=== PATIENT | female | born 1980 | race Caucasian/White ===

== ENCOUNTER 2016-07-25 11:36 | Emergency (ER) | payer BC ==
[2016-07-25 13:14] VITALS: BP 131/62
--- NOTE | 2016-07-25 13:35 | UC ---
Respiratory Complaint HPI - HPI Summary HPI Summary: THREE WEEKS OF PRODUCTIVE COUGH WITH GREEN SPUTUM, SINUS CONGESTION, WHEEZING, NO FEVER, - History of Current Complaint Chief Complaint: UCGeneralIllness Stated Complaint: COUGH Time Seen by Provider: 07/25/16 12:56 Hx Obtained From: Patient Hx Last Menstrual Period: 06/30/16 Onset/Duration: Gradual Onset, Lasting Weeks, Still Present Severity Initially: Moderate Severity Currently: Moderate Character: Cough: Productive Aggravating Factors: Deep Breaths Associated Signs And Symptoms: Positive: Chills, Wheezing, URI, Nasal Congestion , Hoarseness, Sinus Discomfort. Negative: Calf Swelling - Risk Factors Pulmonary Embolism Risk Factors: Negative Cardiac Risk Factors: Negative Pseudomonas Risk Factors: Negative Tuberculosis Risk Factors: Negative - Allergies/Home Medications Allergies/Adverse Reactions: Allergies Allergy/AdvReac Type Severity Reaction Status Date / Time No Known Allergies Allergy Verified 07/25/16 13:13 PMH/Surg Hx/FS Hx/Imm Hx Previously Healthy: Yes Endocrine History Of: Denies: Diabetes, Thyroid Disease Cardiovascular History Of: Denies: Cardiac Disorders, Hypertension, Pacemaker/ICD Respiratory History Of: Denies: COPD, Asthma GI/ History Of: Denies: Gastroesophageal Reflux, Renal Disease Neurological History Of: Denies: CVA, Dementia, Seizures Cancer History Of: Denies: Breast Cancer Other History Of: Negative For: Anticoagulant Therapy - Surgical History Surgery Procedure, Year, and Place: ACL repair R knee - arthroscopy R knee - Family History Known Family History: Negative: Respiratory Disease - Social History Occupation: Unemployed Lives: With Family Alcohol Use: None Substance Use Type: None Smoking Status (MU): Never Smoked Tobacco - Immunization History Most Recent Influenza Vaccination: 2016 Most Recent Tetanus Shot: current Review of Systems Constitutional: Chills, Fatigue Skin: Negative Eyes: Negative ENT: Nasal Discharge Respiratory: Cough Cardiovascular: Negative Gastrointestinal: Negative Genitourinary: Negative Motor: Negative Neurovascular: Negative Musculoskeletal: Negative Neurological: Negative Psychological: Negative All Other Systems Reviewed And Are Negative: Yes Physical Exam Triage Information Reviewed: Yes Appearance: No Pain Distress, Well-Nourished, Ill-Appearing Vital Signs: Initial Vital Signs Temp 98.3 F 07/25/16 12:56 Pulse 63 07/25/16 12:56 Resp 18 07/25/16 12:56 BP 131/62 07/25/16 12:56 Pulse Ox 99 07/25/16 12:56 Vital Signs Reviewed: Yes Eye Exam: Normal Eyes: Positive: Conjunctiva Clear ENT: Positive: Hearing grossly normal, Pharynx normal, Nasal congestion, TM bulging, TM dull Dental Exam: Normal Neck exam: Normal Neck: Positive: Supple, Nontender, No Lymphadenopathy Respiratory: Positive: Chest non-tender, Normal breath sounds, No respiratory distress, No accessory muscle use, Wheezing - SCANT WHEEZING ON EXPRATION Cardiovascular Exam: Normal Cardiovascular: Positive: RRR, No Murmur, Pulses Normal Abdominal Exam: Normal Abdomen Description: Positive: Nontender, No Organomegaly Musculoskeletal Exam: Normal Neurological Exam: Normal Psychological Exam: Normal Skin Exam: Normal UC Diagnostic Evaluation - Laboratory O2 Sat by Pulse Oximetry: 99 Respiratory Course/Dx - Differential Dx/Diagnosis Differential Diagnosis/HQI/PQRI: Asthma, Bronchitis, Sinusitis Provider Diagnoses: SINUSITIS. BRONCHITIS WITH BRONCHOSPASM Discharge - Discharge Plan Condition: Stable Disposition: HOME Prescriptions: Albuterol HFA INHALER* [Ventolin HFA Inhaler*] 1 - 2 puff INH Q4H PRN #1 mdi PRN Reason: Wheezing Azithromycin TAB* [Zithromax TAB (Z-JESSICA) 250 mg #6 tabs] 250 mg PO DAILY #6 tab Benzonatate CAP* [Tessalon 100 MG CAP*] 100 mg PO TID PRN #15 cap PRN Reason: Cough Patient Education Materials: Sinusitis (ED), Acute Bronchitis (ED), Bronchospasm (ED) Referrals: Hilary Tarango MD [Primary Care Provider] -
== END 2016-07-25 13:44 | disposition home or self-care (01) ==
LOC: UCEAST 11:36
DX: J32.9 Chronic sinusitis, unspecified (principal); J40 Bronchitis, not specified as acute or chronic; J98.01 Acute bronchospasm
CPT/HCPCS: 99212; G0463

== ENCOUNTER 2018-11-07 17:57 | Emergency (ER) | payer BC ==
[2018-11-07 18:34] VITALS: BP 122/99
[2018-11-07] MEDS ORDERED: Tetan/Diph/Pertus SYR(Tdap)* 0.5 ML SYR(BOOSTRIX) use SYR IM ONE (19:51)
--- NOTE | 2018-11-07 20:34 | UC ---
UC General HPI - HPI Summary HPI Summary: 38-year-old female comes in with a chief complaint of puncture wound to the right hand by a nail today. She also was exposed to somebody with strep throat would like to get a strep test done. Her last tetanus has been a long time ago and she would like a tetanus shot if appropriate. No fevers no chills. The injury was to the thenar eminence of the right hand. No loss of range of motion no numbness is no radiation of pain no drainage no redness. - History of Current Complaint Chief Complaint: UCGeneralIllness Stated Complaint: THROAT PAIN Time Seen by Provider: 11/07/18 20:07 Hx Last Menstrual Period: [id number] Pain Intensity: 3 - Allergy/Home Medications Allergies/Adverse Reactions: Allergies Allergy/AdvReac Type Severity Reaction Status Date / Time No Known Allergies Allergy Verified 11/07/18 18:35 Home Medications: Home Medications Escitalopram * [Lexapro *] 20 mg PO DAILY 11/07/18 [History Confirmed 11/07/18] PMH/Surg Hx/FS Hx/Imm Hx Previously Healthy: Yes Other History Of: Negative For: Anticoagulant Therapy - Surgical History Surgical History: Yes Surgery Procedure, Year, and Place: ACL repair R knee - arthroscopy R knee - Family History Known Family History: Negative: Respiratory Disease - Social History Alcohol Use: Weekly Substance Use Type: None Smoking Status (MU): Never Smoked Tobacco - Immunization History Most Recent Influenza Vaccination: 2015 Most Recent Tetanus Shot: 2009 Review of Systems All Other Systems Reviewed And Are Negative: Yes Constitutional: Positive: Negative Skin: Positive: Other - SEE HPI Eyes: Positive: Negative ENT: Positive: Negative Respiratory: Positive: Negative Cardiovascular: Positive: Negative Gastrointestinal: Positive: Negative Motor: Positive: Negative Neurovascular: Positive: Negative Musculoskeletal: Positive: Negative Neurological: Positive: Negative Psychological: Positive: Negative Is Patient Immunocompromised?: No Physical Exam Triage Information Reviewed: Yes Appearance: Well-Appearing, No Pain Distress, Well-Nourished Vital Signs: Initial Vital Signs Temp 98.2 F 11/07/18 18:30 Pulse 79 11/07/18 18:30 Resp 16 11/07/18 18:30 BP 122/99 11/07/18 18:30 Pulse Ox 99 11/07/18 18:30 Vital Signs Reviewed: Yes Eye Exam: Normal Eyes: Positive: Conjunctiva Clear ENT: Positive: Pharynx normal. Negative: Nasal drainage Neck: Positive: Supple Respiratory: Positive: No respiratory distress Musculoskeletal: Positive: Strength Intact, ROM Intact Neurological Exam: Normal Neurological: Positive: Alert, Muscle Tone Normal Psychological Exam: Normal Psychological: Positive: Age Appropriate Behavior Skin: Positive: Other - On the palmar thenar eminence of the right hand there is a 1 cm linear area of erythema. Appears the nail went in at very low angle. There is no erythema other than the linear area. Nontender to palpation no discharge. Thumb has full range of motion full-strength wrist also has full range of motion full-strength and is nontender to palpation. Course/Dx - Course Course Of Treatment: At this time the puncture wound does not appear infected. Patient received T tap here in clinic. Gave her prescription for Keflex to start if is any signs of infection. Also if there was any infection she needs to get reevaluated right away. - Diagnoses Provider Diagnosis: Puncture wound of hand, right Discharge - Sign-Out/Discharge Documenting (check all that apply): Patient Departure All imaging exams completed and their final reports reviewed: No Studies - Discharge Plan Condition: Stable Disposition: HOME Prescriptions: Cephalexin CAP* [Keflex CAP*] 500 mg PO TID #30 cap Patient Education Materials: Puncture Wound (ED) Referrals: Hilary Tarango MD [Primary Care Provider] - Additional Instructions: FOLLOW UP WITH YOUR DOCTOR IF NOT COMPLETELY IMPROVED. GET RECHECKED SOONER IF YOUR CONDITION WORSENS OR ANY QUESTIONS OR CONCERNS. - Billing Disposition and Condition Condition: STABLE Disposition: Home
== END 2018-11-07 20:35 | disposition home or self-care (01) ==
LOC: UCEAST 17:57
DX: S61.431A Puncture wound without foreign body of right hand, initial encounter (principal); R07.0 Pain in throat; Z23 Encounter for immunization; W45.0XXA Nail entering through skin, initial encounter; Y92.9 Unspecified place or not applicable
CPT/HCPCS: 87651; 90715; 99212; G0463

== ENCOUNTER 2019-03-11 08:49 | Emergency (ER) | payer BC ==
--- OUTSIDE RECORDS SUMMARY | 2019-03-11 08:55 | XMS REPORT | Continuity of Care Document ---
:1980 External Reference #:[id number] Author Name Hilary Tarango M.D. Address [address] [place] [address] Care Team Providers Name Role Phone Yessi Ingram MD - Dermatology Care Team Information [employer] Maintainer [phone] Hilary Tarango M.D. - Family Medicine Care Team Information [employer] Maintainer Unavailable Problems Active Problems Provider Date Anxiety state Hilary Tarango M.D. Onset: 02/07/2019 Social History Type Date Description Comments Sex Unknown Tobacco Use Start: Unknown Nonsmoker Smoking Status Reviewed: 02/07/19 Nonsmoker ETOH Use Occasional 3-5 a week Tobacco Use Start: Unknown nonsmoker Exercise Type/Frequency enjoys exercise: walking, biking, hiking Sun Exposure Uses sunscreen Seat Belt/Car Seat Always uses seat belt Allergies, Adverse Reactions, Alerts Description No Known Drug Allergies Medications Active Medications SIG Qnty Indications Ordering Provider Date Lorazepam 1 by mouth every 30tabs F41.9 Hilary Tarango, 02/07/2019 0.5mg Tablets 8 hours as M.D. needed for anxiety/sleep Escitalopram Oxalate Take One Tablet 30tabs F41.9 Hiwot Tasha 02/22/2017 20mg By Mouth Every Bell, [employer] Tablets Day Medications Administered in Office Medication SIG Qnty Indications Ordering Provider Date TB Intradermal Test Nereida Schuler 01/12/2016 Injection Immunizations CPT Code Status Date Vaccine Lot # [id number] Given 02/01/2018 Influenza Vac, Quadriv[place] [id number] Given 02/16/2017 Influenza Vac, Quadrivalent, Slit Virus, Im [id number] Given 01/12/2016 Influenza Vac, Quadrivalent, Slit Virus, Im [id number] Given 04/12/2013 DO Not Use Split Influenza Virus Vaccine Vital Signs Date Vital Result Comment 02/07/2019 9:53am BP Systolic 102 mmHg BP Diastolic 68 mmHg Heart Rate 72 /min Body Temperature 98.4 F Respiratory Rate 16 /min Height 66.5 inches 5'6.50" Weight 147.00 lb BMI (Body Mass Index) 23.4 kg/m2 06/15/2017 2:29pm BP Systolic 110 mmHg BP Diastolic 68 mmHg Heart Rate 68 /min Body Temperature 100.7 F Respiratory Rate 18 /min Height 66.5 inches 5'6.50" Weight 138.00 lb BMI (Body Mass Index) 21.9 kg/m2 Results Test Date Facility Test Result H/L Range Note Laboratory test 11/07/2018 [facility] Rapid Strep Negative Negative 1 finding Molecular 1 Panel Machine Setter: [id number] Procedures Date Code Description Status 03/09/2018 [id number] Mammogram Completed 11/07/2015 [id number] Mammogram Completed Medical Devices Description No Information Available Encounters Description No Information Available Assessments Date Code Description Provider 02/07/2019 Z00.00 Encounter for general adult medical examination Hilary Tarango M.D. without abnormal findings 02/07/2019 F41.9 Anxiety disorder, unspecified Hilary Tarango M.D. 02/07/2019 J06.9 Acute upper respiratory infection, unspecified Hilary Tarango M.D. 02/07/2019 Z12.31 Encounter for screening mammogram for malignant Hilary Tarango M.D. neoplasm of breast 02/07/2019 I78.1 Nevus, non-neoplastic Hilary Tarango M.D. Plan of Treatment 02/07/2019 - Hilary Tarango M.D.Z00.00 Encounter for general adult medical examination without abnormal findingsNew Labs:CBC Electronic-[facility], Ordered: 02/07/19Comp Metabolic-[facility], Ordered: 02/07/19Lipid Panel- [facility], Ordered: 02/07/19Ua - Non Micro ([facility]), Ordered: 02/07/19TSH ( [facility]), Ordered: 02/07/19Comments:Encourage an active and healthy lifestyle with proper eating habits including fruits, vegetables, 6-8 glasses of water a day and monitoring portion size. Recommend 30 minutes of daily physical activityincluding walking, aerobic exercise, sports, yoga or dance. Any activity is better than no activity.Recommend routine eye and dental exams. Next physical is due in 1-2 years.Follow up:fasting labs 1 yearF41.9 Anxiety disorder, unspecifiedNew Medication:Lorazepam 0.5 mg - 1 by mouth every 8 hours as needed for anxiety/sleepComments:stable on regimen, call if symptoms [id number] Acute upper respiratory infection, unspecifiedComments:patient agrees to call if symptoms [id number] Encounter for screening mammogram for malignant neoplasm of breastNew Xrays:Mammography Screening, Bilateral; 2-View Each Breast, Ordered: 02/07/19Comments:refer for flrjagglwI00.1 Nevus, non- neoplasticComments:recommend you see coal mill operator given family history of melanoma discussed monitoring for changes insize, color, pain, bleeding or itching to follow up in office or consider dermatology referral ABCDE of melanoma A = AsymmetryOne half is unlike the other half. B = BorderAn irregular, scalloped or poorly defined border. C = ColorIs varied from one area to another; has shades of chen, brown or black, or is sometimes white, red, or blue. D = DiameterMelanomas are usually greater than 6mm (the size of a pencil eraser) when diagnosed, but they can be smaller. https:// www.aad.org/public/gzbo-amnk-cgtuec/wwjaq-yykob-iivf-cancer/detect/khiw-ov-rcdk- forAllComments:Medication Management Patient Understands medications she's taking? Yes No Are there Barriers to Adherence? Yes No Has the patient been asked about herbal supplements and therapies, and OTC meds? Yes No Functional Status Description No Information Available Mental Status Description No Information Available Referrals Description No Information Available
[2019-03-11 09:01] VITALS: BP 95/56
--- NOTE | 2019-03-11 09:33 | UC ---
General HPI - HPI Summary HPI Summary: Pleasant 39 yo female c/o sore scratch throat x 1 day. Her child is sick, prompting visit to be checked this morning. No fever / chills. No ear pain. Min to no cough. No rash. - History of Current Complaint Chief Complaint: UCGeneralIllness Stated Complaint: SORE THROAT Time Seen by Provider: 03/11/19 09:14 Hx Obtained From: Patient Hx Last Menstrual Period: 03/02/19 Pain Intensity: 2 - Allergy/Home Medications Allergies/Adverse Reactions: Allergies Allergy/AdvReac Type Severity Reaction Status Date / Time No Known Allergies Allergy Verified 03/11/19 09:01 PMH/Surg Hx/FS Hx/Imm Hx Previously Healthy: Yes Other History Of: Negative For: Anticoagulant Therapy - Surgical History Surgical History: Yes Surgery Procedure, Year, and Place: ACL repair R knee - arthroscopy R knee - Family History Known Family History: Negative: Respiratory Disease - Social History Alcohol Use: Weekly Substance Use Type: None Smoking Status (MU): Never Smoked Tobacco - Immunization History Most Recent Influenza Vaccination: 2015 Most Recent Tetanus Shot: 2009 Review of Systems All Other Systems Reviewed And Are Negative: Yes Constitutional: Positive: Negative Skin: Positive: Negative Eyes: Positive: Negative ENT: Positive: Sore Throat Respiratory: Positive: Negative Cardiovascular: Positive: Negative Gastrointestinal: Positive: Negative Genitourinary: Positive: Negative Motor: Positive: Negative Neurovascular: Positive: Negative Musculoskeletal: Positive: Negative Neurological: Positive: Negative Psychological: Positive: Negative Is Patient Immunocompromised?: No Physical Exam Triage Information Reviewed: Yes Appearance: Well-Appearing - sitting up, conversing easily, looks a little tired , Well-Nourished Vital Signs: Initial Vital Signs Temp 97.6 F 03/11/19 08:59 Pulse 66 03/11/19 08:59 Resp 16 03/11/19 08:59 BP 95/56 03/11/19 08:59 Pulse Ox 100 03/11/19 08:59 Vital Signs Reviewed: Yes Eye Exam: Normal ENT: Positive: Pharyngeal erythema, TMs normal, Other - uvula midline no sores / exudates Neck exam: Other - R lat lymph node swelling Neck: Positive: Supple, Nontender Respiratory Exam: Normal Respiratory: Positive: Chest non-tender, Lungs clear, Normal breath sounds, No respiratory distress, No accessory muscle use Cardiovascular Exam: Normal Cardiovascular: Positive: RRR, No Murmur, Pulses Normal, Brisk Capillary Refill Abdominal Exam: Normal Abdomen Description: Positive: Nontender Musculoskeletal Exam: Normal - gait steady, moves x 4 ext's Neurological Exam: Normal - grossly nonfocal Psychological Exam: Normal - conversing easily and appropriately. nad. Skin Exam: Normal - no visible or reported rash. Course/Dx - Course Course Of Treatment: RST neg Reviewed results, coa / tx plan with Linda nirali. Questions as posed answered to the best of my ability. - Diagnoses Provider Diagnosis: Pharyngitis Discharge ED - Sign-Out/Discharge Documenting (check all that apply): Patient Departure All imaging exams completed and their final reports reviewed: No Studies - Discharge Plan Condition: Stable Disposition: HOME Patient Education Materials: Strep Throat (DC) Forms: *Work Release Referrals: Hilary Tarango MD [Primary Care Provider] - Additional Instructions: Strep throat test here negative. Hydrate. Follow up with your primary care physician, per routine. Seek medical attention for worse or new problems. - Billing Disposition and Condition Condition: STABLE Disposition: Home
== END 2019-03-11 10:30 | disposition home or self-care (01) ==
LOC: UCEAST 08:49
DX: J02.9 Acute pharyngitis, unspecified (principal)
CPT/HCPCS: 87651; 99211; G0463